=== PATIENT | male | born 1985 ===

== ENCOUNTER 2017-06-30 13:17 | Emergency (ER) | payer BC ==
[2017-06-30 13:29] VITALS: BP 148/94; PULSE 92; RESP 18; TEMP 97.6; O2SAT 95
--- NOTE | 2017-06-30 14:38 | C.PDOC ---
History Of Present Illness 31-year-old male, presents to the emergency department with complaints of left ankle pain. Patient states he was running down a staircase, when he tripped and fell down three steps. Patient reports pain with weight bearing, swelling and bruising. Patient denies numbness or weakness. Time Seen by Provider: 06/30/17 13:33 Chief Complaint (Nursing): Lower Extremity Problem/Injury Past Medical History Reviewed: Historical Data, Nursing Documentation, Vital Signs Vital Signs: Last Vital Signs Temp 97.6 F 06/30/17 13:23 Pulse 92 H 06/30/17 13:23 Resp 18 06/30/17 13:23 BP 148/94 H 06/30/17 13:23 Pulse Ox 95 06/30/17 15:06 Family History: States: No Known Family Hx - Social History Hx Alcohol Use: Yes Hx Substance Use: No - Immunization History Hx Tetanus Toxoid Vaccination: No Hx Influenza Vaccination: No Hx Pneumococcal Vaccination: No Physical Exam - Physical Exam Appears: Well, Non-toxic Skin: Normal Color, Warm, Dry, No Rash Extremity: Capillary Refill (<2 seconds), No Deformity, No Swelling, Other ( Tenderness to left lateral malleolus with mild swelling and echymosis. ROM intact) Pulses: Left Dorsalis Pedis: Normal, Right Dorsalis Pedis: Normal Neurological/Psych: Oriented x3, Normal Speech ED Course And Treatment O2 Sat by Pulse Oximetry: 95 (RA) Pulse Ox Interpretation: Normal Progress Note: XR L ankle ordered and reviewed. Patient treated with Naproxen. On re-evaluation, patient is resting comfortably, and is in no acute distress. Pain has improved Patient was instructed to follow up with physician/clinic in 1 -2 days for further evaluation. Disposition Counseled Patient/Family Regarding: Diagnosis, Need For Followup, Rx Given - Disposition Referrals: Erick Salmeron III, MD [Staff Provider] - Podiatry Clinic [Outside] Disposition: HOME/ ROUTINE Disposition Time: 15:05 Condition: STABLE Additional Instructions: FOLLOW UP WITH ORTHOPEDICS AND PODIATRY WITHIN 1 WEEK USE MEDICATIONS DIRECTED RETURN TO EMERGENCY ROOM IF SYMPTOMS WORSEN SEGUIMIENTO CON ORTOPEDIA Y P[place] DENTRO DE 1 SEMANA USE MEDICAMENTOS SEGN LO INDICADO REGRESE AL ROCIO DE EMERGENCIA SI LOS SNTOMAS EMPEORAN Prescriptions: Naproxen [Naprosyn] 1 tab PO BID PRN #25 tab PRN Reason: Pain Instructions: Ankle Sprain Forms: [facility] (Russian) Print Language: CITIZEN OF [place] - POA Present On Arrival: Falls Or Trauma - Clinical Impression Clinical Impression: Right ankle sprain - Scribe Statement The provider has reviewed the documentation as recorded by the Scribe (Sammy Zapien) All medical record entries made by the Scribe were at my direction and personally dictated by me. I have reviewed the chart and agree that the record accurately reflects my personal performance of the history, physical exam, medical decision making, and the department course for this patient. I have also personally directed, reviewed, and agree with the discharge instructions and disposition.
[2017-06-30] MEDS ORDERED: Naproxen 550 mg Tab PO STA (15:04)
[2017-06-30] MEDS ORDERED: Naproxen 550 mg Tab PO ONE (15:24)
--- NOTE | 2017-06-30 15:36 | RAD ---
Left ankle three views History: Ankle pain. Comparison: None available. Findings: Prominent lateral malleolar soft tissue swelling. No evidence of acute displaced fracture or dislocation. Impression: Prominent lateral malleolar soft tissue swelling. If pain persists, consider MRI.
== END 2017-06-30 15:26 | disposition home or self-care (01) ==
LOC: C.ER 13:17
DX: S93.402A Sprain of unspecified ligament of left ankle, initial encounter (principal); W10.9XXA Fall (on) (from) unspecified stairs and steps, initial encounter

== ENCOUNTER 2017-07-07 14:20 | Emergency (ER) | payer BC ==
[2017-07-07 14:27] VITALS: BMI 24.0
[2017-07-07 14:32] VITALS: BP 150/70; PULSE 75; RESP 18; TEMP 97.9; O2SAT 96
--- NOTE | 2017-07-07 15:26 | C.PDOC ---
History Of Present Illness Pt is here to follow up on his left ankle sprain. He state he returned here because he prefers it instead of following up the orthopedic office as instructed. Time Seen by Provider: 07/07/17 14:38 Chief Complaint (Nursing): Lower Extremity Problem/Injury History Per: Patient Onset/Duration Of Symptoms: Days (7) Current Symptoms Are (Timing): Better Severity: Mild Additional History Per: Prior Records Past Medical History Reviewed: Historical Data, Nursing Documentation, Vital Signs Vital Signs: Last Vital Signs Temp 97.9 F 07/07/17 14:27 Pulse 75 07/07/17 14:27 Resp 18 07/07/17 14:27 BP 150/70 07/07/17 14:27 Pulse Ox 96 07/07/17 14:27 - Medical History PMH: No Chronic Diseases Family History: States: Unknown Family Hx - Social History Hx Alcohol Use: Yes Hx Substance Use: No - Immunization History Hx Tetanus Toxoid Vaccination: No Hx Influenza Vaccination: No Hx Pneumococcal Vaccination: No Review Of Systems Except As Marked, All Systems Reviewed And Found Negative. Constitutional: Negative for: Fever Cardiovascular: Negative for: Chest Pain Respiratory: Negative for: Shortness of Breath Gastrointestinal: Negative for: Vomiting, Abdominal Pain Skin: Negative for: Rash Neurological: Negative for: Weakness, Numbness Physical Exam - Physical Exam Appears: Non-toxic, No Acute Distress Skin: Normal Color, Warm, Dry, No Rash Head: Atraumatic, Normacephalic Eye(s): bilateral: Normal Inspection, PERRL, EOMI Neck: Normal ROM, Supple Extremity: Normal ROM, No Pedal Edema, No Calf Tenderness, Capillary Refill (wnl ), Swelling (around left lateral mal.) Extremity: Bilateral: Normal Color And Temperature Pulses: Left Dorsalis Pedis: Normal Neurological/Psych: Oriented x3, Normal Motor, Normal Sensation ED Course And Treatment O2 Sat by Pulse Oximetry: 96 Pulse Ox Interpretation: Normal Disposition Counseled Patient/Family Regarding: Studies Performed, Diagnosis, Need For Followup - Disposition Referrals: Erick Salmeron III, MD [Staff Provider] - Disposition: HOME/ ROUTINE Disposition Time: 15:27 Condition: STABLE Additional Instructions: Rest. Elevate. Ice. Follow up with an market research specialist for further evaluation and treatment. Return to the ER if you develop worsening of symptoms or if you have any other concerns. Instructions: Ankle Sprain (DC) Forms: [facility] (Croatian) Print Language: [place] - Clinical Impression Clinical Impression: Left ankle sprain
== END 2017-07-07 15:35 | disposition home or self-care (01) ==
LOC: C.ER 14:20
DX: S93.402D Sprain of unspecified ligament of left ankle, subsequent encounter (principal); X58.XXXD Exposure to other specified factors, subsequent encounter